=== PATIENT | male | born 1940 | race Caucasian/White ===

== ENCOUNTER → 2018-05-02 | Outpatient (CLI) | payer OTHER ==
[~2018-05-02] MED LIST: ALLEGRA ALLERGY60 MG PO; LISINOPRIL10 MG PO; LOPRESSOR100 M1 PO
--- NOTE | ~2018-05-02 | EKG ---
[address] [address] ELECTROCARDIOGRAM REPORT Name: MARCO MARES Room #: REG CLI [facility].#: [id number] Admission: 05/02/18 Attend Phys: Marcello Grijalva MD Discharge: Date of : 44 Report #: [id number] THIS REPORT FOR: //name// [facility] Test Date: 2018-05-02 Test Time: 07:35:43 Pat Name: MARCO MARES Department: Room: Gender: M Fitness/Wellness Director: DUANE : 1940 Requested By: Marcello Grijalva Order Number: [id number] MD: Justin Cardenas Measurements Intervals Taylor Rate: 61 P: 24 MO: 145 QRS: 16 QRSD: 103 T: 18 QT: 427 QTc: 430 Interpretive Statements Sinus rhythm Abnormal R-wave progression, late transition No previous ECG available for comparison Electronically Signed On 05-02-2018 8:08:57 CDT by Justin Cardenas [email or web address] <ELECTRONICALLY SIGNED> By: Justin Cardenas MD, [facility] 05/02/18 [id number] [id number] Justin Cardenas MD, FACC /EPI
== END | disposition home or self-care (01) ==
LOC: LITH 07:15
DX: N20.0 Calculus of kidney (principal); I10 Essential (primary) hypertension; N40.1 Benign prostatic hyperplasia with lower urinary tract symptoms; C91.11 Chronic lymphocytic leukemia of B-cell type in remission; M10.9 Gout, unspecified; Z98.890 Other specified postprocedural states